=== PATIENT | male | born 1945 | race Caucasian/White ===

== ENCOUNTER 2016-10-05 14:37 | Emergency (ER) | payer MEDICAID, MEDICARE, OTHER ==
[~2016-10-05] VITALS: Ht 175.3 cm; Wt 115.9 kg
[~2016-10-05 14:37] MED LIST: ATOR20TA PO; DIGO250T72 PO; DOXY100C2 PO; FERR-83 PO; FRSM80T PO; LISI-571 PO; METF850T2 PO; METO-274 PO; METO2.5T12 PO; NITR0.4T SL; POTA10TA38 PO; SPIR25TA3 PO; WARF2TAB7 PO
[2016-10-05 14:46] VITALS: BP 110/75; PULSE 63; RESP 18; O2SAT 96
--- NOTE | 2016-10-05 16:11 | ED.REPORT ---
HPI-General Illness Date of Service Oct 05, 2016 ED Provider: Suleiman Lockett DO A 71 year old male with a history of diabetes, pacemaker placement, CHF and constipation presents to the ED complaining of constipation. The pt has been unable to have a bowel movement in ten days. This has resulted in bloating and lack of passing gas but the pt denies vomiting, lack of appetite or significant abdominal pain. The pt often becomes constipated for two to three days but this resolves with lactulose. This medication has not relieved his symptoms during this episode. He denies history of bowel blockage. Nursing Notes Stated Complaint: CONSTIPATION Chief Complaint: General Complaint Nursing Notes Reviewed: Yes Allergies: Coded Allergies: No Known Allergies (Unverified , 10/05/16) Scheduled Atorvastatin (Lipitor) 20 Mg Tablet 20 MG PO DAILY Digoxin (Digoxin) 250 Mcg Tablet 250 MCG PO DAILY Doxycycline Hyclate (Doxycycline Hyclate) 100 Mg Capsule 100 MG PO DAILY Ferrous Sulfate (Ferrous Sulfate) 325 Mg Tablet 325 MG PO DAILYWM Furosemide (Furosemide) 80 Mg Tab 160 MG PO DAILY Lisinopril (Lisinopril) 5 Mg Tablet 5 MG PO DAILY Metformin (Metformin) 850 Mg Tablet 850 MG PO BID Metolazone (Metolazone) 2.5 Mg Tablet 5 MG PO Every other day Metoprolol Succinate ER (Metoprolol Succinate ER) 100 Mg Tab.er.24h 100 MG PO BID Na Phos,M-B/Na Phos,Di-Ba (Fleet Enema) 133 Ml Enema 133 ML RC ONCE give each enema by 2 hours if no BM. Peg/Electrolytes (Golytely Solution) 4,000 Ml Soln 4,000 ML PO ASDIRECTED Potassium Chloride (Potassium Chloride) 10 Meq Tab.er.prt 10 MEQ PO DAILY TAKE WITH FOOD Spironolactone (Spironolactone) 25 Mg Tablet 25 MG PO DAILY Warfarin Sodium (Warfarin Sodium) 2 Mg Tablet 2 MG PO , , , Warfarin Sodium (Warfarin Sodium) 2 Mg Tablet 3 MG PO M,, Scheduled PRN Mineral Oil (Mineral Oil Enema) 133 Ml Enema 133 ML RC ONCE PRN PRN For Constipation Nitroglycerin SL (Nitrostat) 0.4 Mg Tab.subl 0.4 MG SL DIRECTED PRN PRN For Chest Pain General Time Seen by MD: 16:09 Chief Complaint Other (Constipation) Hx Obtained From: Patient Arrived By: Walk-in Sudden in Onset?: No Onset Occurred: More than a week ago... Symptom Duration: Since onset Recent Healthcare: No recent hospitalization, Recent doctor visit Similar Sx Previous: No Past Medical History Past Medical History diabetes constipation Reports: Congestive heart failure Past Surgical History Pacemaker Family History Noncontributory Smoking History Former Smoker Social History Other Social History: Good social support, Local resident Ambulatory Status Independent Review of Systems bloating lack of passing gas denies lack of appetite Full Review of Systems Respiratory: Denies: Non-productive cough, Shortness of breath Cardiovascular: Denies: Chest pain GI: Reports: Constipation, Denies: Abdominal pain, Nausea, Vomiting Musculoskeletal: Denies: Back pain, Neck pain Skin: Denies Rash Complete sys rev & neg: except as marked. Physical Exam Vital Signs Vital Signs Date Time Temp Pulse Resp B/P Pulse Ox O2 Delivery O2 Flow Rate FiO2 10/05/16 14:46 35.8 63 18 110/75 96 Room Air Initial VS: Reviewed General/Constitutional: Awake, Alert Head / Eyes: Atraumatic, Normocephalic, PERRL, EOMI ENT: Atraumatic, Airway patent, Mucous membranes moist Neck: Atraumatic, Supple, Full range of motion Respiratory / Chest: Atraumatic, Breath sounds NL, Breath sounds = bilat, No respiratory distress Cardiovascular: Heart rate NL, Regular rhythm, Heart sounds NL Abdomen: Atraumatic, Non-tender mildly distended Back: Atraumatic, Full range of motion Upper Extremities Upper Extremity / MS: Atraumatic, Full range of motion Lower Extremity / Pelvis / MS: Atraumatic, Full range of motion Skin: Atraumatic, Color NL, No rash, Warm, Dry Neurologic: Oriented X3, Speech NL, No motor deficits, No sensory deficits Psychiatric: Affect NL, Mood NL Re-Eval/Medical Decision Med Decision/Clinical Course Patient declines advanced imaging studies or laboratory studies. He declines a rectal exam. He states he is requesting medication for constipation. GoLYTELY and an enema regimen was prescribed. Clinically his story sounds like constipation, his vital signs are stable and he denies any high-risk features. Strict return and follow-up precautions are given. Source of Hx: Old records Time of Eval: 16:09 Patient Status: Condition improved Re-Evaluation/Progress Note: Pt informed of the diagnosis and plan for discharge during the initial interview. The pt understands and agrees with the plan. All questions are addressed at this time. Counseled Regarding: Diagnosis, Need for follow-up, When/why to return to ED Discharge & Departure Primary Impression: Constipation Constipation type: unspecified constipation type Qualified Code: K59.00 - Constipation, unspecified Disposition: Home Discharge Condition All VS Reviewed: Yes Condition: Stable Patient Instructions: Constipation (ED) Additional Instructions: Continue your other home medications including lactulose. Use a mineral oil enema this evening. If you have not had a significant bowel movement by tomorrow use 2 Fleet's enemas approximately 2 hours apart in the morning. Also begin using the GoLYTELY as prescribed. Follow-up with your primary care doctor as needed. Return to ER if you develop a high fever, severe pain, vomiting, or other concerns Referrals: Lori Santos MD (PCP) Kathya Attestation Portions of this note were transcribed by Narcisa Perez. I, Dr. Lockett personally performed the history, physical exam and medical decision-making; I reviewed and confirmed the accuracy of the information in the transcribed note. Signed by: Kathya Conway, 10/05/2016 and [id number]. copies to: Lori Santos MD, Timothy S DO Oct 05, 2016 16:11 NARCISA PEREZ Oct 05, 2016 16:24
[2016-10-05] MEDS ORDERED: COLL PO (16:26)
[2016-10-05] MEDS ORDERED: MINE133E RC (16:26)
[2016-10-05] MEDS ORDERED: NA P133E23 RC (16:26)
[2016-10-05 16:48] VITALS: BP 106/59; PULSE 78; O2SAT 96
== END 2016-10-05 16:48 | disposition home or self-care (01) ==
LOC: SED 14:37
DX: K59.00 Constipation, unspecified (principal); E11.9 Type 2 diabetes mellitus without complications; I50.9 Heart failure, unspecified; I10 Essential (primary) hypertension; Z86.79 Personal history of other diseases of the circulatory system; Z95.0 Presence of cardiac pacemaker; Z87.891 Personal history of nicotine dependence; Z95.1 Presence of aortocoronary bypass graft; Z79.84 Long term (current) use of oral hypoglycemic drugs; Z79.01 Long term (current) use of anticoagulants

== ENCOUNTER 2016-10-27 11:54 | Emergency (ER) | payer OTHER ==
[~2016-10-27] VITALS: Ht 172.7 cm; Wt 118.2 kg
[~2016-10-27 11:54] MED LIST changes: +COLL PO; +MINE133E RC; +NA P133E23 RC
[2016-10-27 11:55] VITALS: BP 137/75; PULSE 70; RESP 28; O2SAT 95
--- NOTE | 2016-10-27 12:17 | ED.REPORT ---
HPI-Dyspnea / Wheezing Date of Service Oct 27, 2016 ED Provider: Dr. Paz Pt is a 71 year old male with a hx of COPD, CHF, DM and a pacemaker presenting to the ED complaining of SOB worsening over the last 5 days. Associated symptoms include LE swelling and dyspnea on exertion. Denies any chest pain, nausea, fever, cough, or any other symptoms at this time. He reports that with his past heart attacks, he had nausea but no chest pain. Nursing Notes Stated Complaint: SOB Chief Complaint: Respiratory Distress Nursing Notes Reviewed: Yes Allergies: Coded Allergies: No Known Allergies (Unverified , 10/05/16) Scheduled Atorvastatin (Lipitor) 20 Mg Tablet 20 MG PO DAILY Digoxin (Digoxin) 250 Mcg Tablet 250 MCG PO DAILY Ferrous Sulfate (Ferrous Sulfate) 325 Mg Tablet 325 MG PO DAILYWM Metformin (Metformin) 850 Mg Tablet 850 MG PO BID Metolazone (Metolazone) 2.5 Mg Tablet 5 MG PO DAILY Metoprolol Succinate ER (Metoprolol Succinate ER) 100 Mg Tab.er.24h 100 MG PO BID Potassium Chloride (Potassium Chloride) 10 Meq Tab.er.prt 10 MEQ PO DAILY TAKE WITH FOOD Torsemide (Torsemide) 100 Mg Tablet 120 MG PO DAILY Warfarin Sodium (Warfarin Sodium) 2 Mg Tablet 2 MG PO , , , Sa Warfarin Sodium (Warfarin Sodium) 2 Mg Tablet 3 MG PO M,W, F General Time Seen by MD: 12:17 Chief Complaint Shortness of breath Hx Obtained From: Patient Arrived By: Walk-in Sudden in Onset?: No Onset Occurred: 3 days ago Symptom Duration: Since onset Severity: Current: No pain currently Severity: Maximum: No pain Recent Healthcare: No recent doctor visit, No recent hospitalization Similar Sx Previous: No Past Medical History Past Medical History diabetes constipation COPD Multiple MIs Reports: Congestive heart failure, Coronary artery disease Past Surgical History Pacemaker Stints Family History Noncontributory Smoking History Former Smoker Social History Alcohol Use: Denies alcohol use Other Social History: Good social support, Local resident Ambulatory Status Independent Review of Systems Constitutional: Denies: Fever Respiratory: Reports: Shortness of breath, Denies: Non-productive cough Cardiovascular: Denies: Chest pain Complete sys rev & neg: except as marked. GI: Denies: Nausea Physical Exam Initial Vital Signs Vital Signs (First) Date Time Temp Pulse Resp B/P Pulse Ox O2 Delivery O2 Flow Rate FiO2 7/7/17 11:55 36.1 70 28 137/75 95 Initial VS: Reviewed Head / Eyes: Atraumatic, Normocephalic, PERRL ENT: Mucous membranes moist, Conjunctiva normal, No scleral icterus Abdomen / GI: Soft, Non-tender, No guarding, No rebound, No distention Skin: Warm, Dry, No cyanosis Neurologic: Alert, Oriented, Nonfocal Psychiatric: Mood/affect normal, Behavior normal, Normal thought content General/Constitutional: Awake, Alert, No acute distress, Well appearing Neck: Atraumatic, Supple Respiratory / Chest: Breath sounds NL, Breath sounds = bilat, No respiratory distress, No rales, No rhonchi, No wheezing, No retractions, No stridor Cardiovascular: Heart rate NL, Regular rhythm, Heart sounds NL, Peripheral circulation NL Lower Extremity / Pelvis / MS: Neurologic intact, Vascular intact 1+ edema Interpretation & Diagnostics Lab Results Interpretation Result Diagram: 10/27/16 1227 10/27/16 1227 Test 10/27/16 12:27 White Blood Count 6.2th/mm3 (3.8-10.1) Red Blood Count 4.35mil/mm3 (4.40-5.80) Hemoglobin 14.0g/dL (13.8-17.2) Hematocrit 43.3% (41.0-50.0) Mean Corpuscular Volume 99.5fL (81-100) Mean Corpuscular Hemoglobin 32.2pg (27.0-35.0) Mean Corpuscular Hemoglobin Concent 32.3% (32.0-37.0) Red Cell Distribution Width 13.8% (12.3-15.4) Platelet Count 111bil/L (150-400) Neutrophils (%) (Auto) 68.9% (40-74) Lymphocytes (%) (Auto) 16.8% (14-46) Monocytes (%) (Auto) 11.5% (4-12) Eosinophils (%) (Auto) 2.4% (0-5) Basophils (%) (Auto) 0.2% (0-3) Sodium Level 139mEq/L (134-144) Potassium Level 4.1mEq/L (3.5-5.2) Chloride Level 103mEq/L (97-108) Carbon Dioxide Level 22mmol/L (18-29) Blood Urea Nitrogen 10mg/dL (8-27) Creatinine 0.99mg/dL (0.76-1.27) Estimat Glomerular Filtration Rate 79mL/min (>59) Glucose Level 135mg/dL (60-99) Calcium Level 9.3mg/dL (8.5-10.1) Magnesium Level 1.7mg/dL (1.6-2.6) Total Bilirubin 0.7mg/dL (0.0-1.2) Aspartate Amino Transf (AST/SGOT) 15U/L (0-50) Alanine Aminotransferase (ALT/SGPT) 14U/L (0-44) Alkaline Phosphatase 70U/L (25-160) Troponin T < 0.010ug/L (0.0-0.011) Pro-B-Type Natriuretic Peptide 1859pg/mL (0-376) Total Protein 7.4g/dL (6.4-8.4) Albumin 3.9g/dL (3.4-5.0) Hold Barros Top Tube Received (Received) ECG Interpretation ECG Interpretation: Ventricular-paced complexes Time: 12:39 Interpreted by: ED physician Normal ECG Interpretation: Normal rate (70) X-Ray Chest Interpretation Chest Xray Interpretation: IMPRESSION: Moderate interstitial pulmonary edema, consistent with congestive heart failure in the setting of cardiomegaly. Dictated by: Viet Uribe M.D. on 10/27/2016 at 12:53 View: Portable, 1 view Interpretation / Wet Read by: Interpret - Radiologist Re-Eval/Medical Decision Re-Evaluation/Progress #1: Time of Eval: 13:00 Patient Status: Condition improved Re-Evaluation/Progress Note: Discussed PMHX and performed physical exam. Re-Evaluation/Progress #2: Time of Eval: 13:50 Patient Status: Condition improved Re-Evaluation/Progress Note: Discussed consultation with Dr. Ann and plan for discharge. Pt understands and agrees with plan. Consultation : Referral / Consult Name: Faraz Ann MD Consulted With: Cardiology Call Returned at: 13:44 Note: Discontinue Furosemide and add Torsemide 100 mg daily. Counseled Regarding: Diagnosis, Lab results, Need for follow-up, When/why to return to ED Discharge & Departure Impression: Primary Impression: Cardiomyopathy Cardiomyopathy type: unspecified Qualified Code: I42.9 - Cardiomyopathy, unspecified Additional Impression: Congestive heart failure Congestive heart failure type: unspecified congestive heart failure type Congestive heart failure chronicity: unspecified congestive heart failure chronicity Qualified Code: I50.9 - Heart failure, unspecified Disposition: Home Discharge Condition All VS Reviewed: Yes Condition: Improved Patient Instructions: Heart Failure (ED) Additional Instructions: I believe that your symptoms are related to congestive heart failure. You need to have a medication adjustment. Dr. Ann recommends the followin. Discontinue furosemide 2. Start torsemide 100 mg daily. You told me that you are already taking torsemide which is different from your clinic medication list. Therefore, I recommended you go home, get your medications laid out in front of you so you know exactly you are taking and call the clinic and ask them to help you with a medication adjustment. If you are having trouble contacting them or get any information you need, call me back at [phone] before 4:30 p.m. Referrals: Lroi Santos MD (PCP) Fifiibe Attestation Portions of this note were transcribed by Daysi Contreras. I, Dr. Paz personally performed the history, physical exam and medical decision-making; I reviewed and confirmed the accuracy of the information in the transcribed note. Signed by: Kathya Mcdaniels, 10/27/2016 at 1407. copies to: Lori Santos MD, Kirk H MD Oct 27, 2016 12:17 DAYSI CONTRERAS Oct 27, 2016 12:23
[2016-10-27] MEDS ORDERED: TORS100T3 PO (12:19)
[2016-10-27 12:37] LABS: BASOPHILS % (AUTO) 0.2 % (0-3); EOSINOPHILS % (AUTO) 2.4 % (0-5); MONOCYTES % (AUTO) 11.5 % (4-12); Mean Corpuscular Hemoglobin 32.2 pg (27.0-35.0); Mean Corpuscular Volume 99.5 fL (81-100); NEUTROPHILS % (AUTO) 68.9 % (40-74); Platelet Count 111 bil/L (150-400)
--- NOTE | 2016-10-27 12:57 | DRSVH ---
PROCEDURE: X-RAY CHEST ONE VIEW, PORTABLE ([id number]) INDICATIONS: 71 year-old male with congestive heart failure. TECHNIQUE: One view of the chest was acquired. COMPARISON: [facility], CR, XR CHEST 2VW, 02/25/2016, 6:50. [facility], CR, XR CHEST 1VW (PORTABLE), 02/24/2016, 19:33. [facility], CR, XR CHEST 2VW, 02/23/2016, 7 :02. FINDINGS: Surgical changes and devices: Left chest wall pacer/ICD is again noted. Patient is status post marroquin ry artery bypass grafting. Lungs and pleura: No pleural effusions or pneumothorax. There is diffuse pulmonary reticular interst itial prominence, along with right minor fissural thickening. No acute airspace opacities. Mediastinum: Mediastinal contours appear normal. Cardiomegaly is unchanged. Bones and chest wall: No suspicious bony lesions. Overlying soft tissues appear unremarkable. IMPRESSION: Moderate interstitial pulmonary edema, consistent with congestive heart failure in the se tting of cardiomegaly. Dictated by: Viet Uribe M.D. on 10/27/2016 at 12:53 Approved by: Viet Uribe M.D. on 10/27/2016 at 12:55
[2016-10-27 13:12] LABS: TROPONIN T < 0.010 ug/L (0.0-0.011)
[2016-10-27 13:17] LABS: Magnesium 1.7 mg/dL (1.6-2.6)
[2016-10-27 14:48] VITALS: BP 129/78; PULSE 70; RESP 20; O2SAT 96
== END 2016-10-27 14:50 | disposition home or self-care (01) ==
LOC: SED 11:54
DX: I42.9 Cardiomyopathy, unspecified (principal); I50.9 Heart failure, unspecified; J44.9 Chronic obstructive pulmonary disease, unspecified; E11.9 Type 2 diabetes mellitus without complications; Z95.0 Presence of cardiac pacemaker; I25.10 Atherosclerotic heart disease of native coronary artery without angina pectoris; I25.2 Old myocardial infarction; Z79.01 Long term (current) use of anticoagulants; Z79.84 Long term (current) use of oral hypoglycemic drugs; Z87.891 Personal history of nicotine dependence